=== PATIENT | male | born 1995 | race Caucasian/White ===

== ENCOUNTER 2018-07-13 01:15 | Emergency (ER) | payer OTHER ==
[2018-07-13] MEDS ORDERED: NS 1,000 ML IV ONE ×2 (01:20→02:43)
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
[2018-07-13 01:35] LABS: PLATELET COUNT 214 10^3/uL (150-400)
[2018-07-13] MEDS ORDERED: INSULIN REGULAR HUMAN 100 UNIT/ML UNIT SC ONE (04:53)
[2018-07-13 06:47] VITALS: BP 128/70
== END 2018-07-13 06:47 | disposition home or self-care (01) ==
DX: F10.920 Alcohol use, unspecified with intoxication, uncomplicated (principal); E86.0 Dehydration; E10.9 Type 1 diabetes mellitus without complications; Y90.7 Blood alcohol level of 200-239 mg/100 ml; V89.2XXA Person injured in unspecified motor-vehicle accident, traffic, initial encounter; Y92.410 Unspecified street and highway as the place of occurrence of the external cause; Z79.4 Long term (current) use of insulin
CPT/HCPCS: 80305; G0480; J1815